=== PATIENT | female | born 1975 | race Caucasian/White ===

== ENCOUNTER 2021-04-03 07:35 | Outpatient (CLI) | payer BC ==
[2021-04-03] VITALS (9 sets, daily range): BP systolic 98–142; BP diastolic 50–78
[~2021-04-03] VITALS: Ht 162.6 cm; Wt 63.6 kg
[2021-04-03] MEDS ORDERED: OCRELIZUMAB 600 MG in NS 500 ML IV ONE (08:00)
[2021-04-03] MEDS ORDERED: methylPREDNISolone 125MG 2ML VIAL IV ONE (08:00)
[2021-04-03] MEDS ORDERED: ACETAMINOPHEN TAB 650MG DOSE (2X325MG) PO ONE (08:00)
[2021-04-03] MEDS ORDERED: diphenhydrAMINE 25MG CAP PO ONE (08:00)
== END 2021-04-03 13:10 | disposition home or self-care (01) ==
LOC: M INFU 07:35
PROVIDERS: ATTEND Psychiatry & Neurology Neurology
DX: G35 Multiple sclerosis (principal); Z88.0 Allergy status to penicillin; Z88.8 Allergy status to other drugs, medicaments and biological substances; Z91.013 Allergy to seafood
CPT/HCPCS: 96365; 96366; 96375; J2350; J2930

== ENCOUNTER 2021-10-02 07:50 | Outpatient (CLI) | payer BC ==
[2021-10-02] VITALS (7 sets, daily range): BP systolic 108–130; BP diastolic 56–77
[~2021-10-02] VITALS: Ht 162.6 cm; Wt 28.9 kg
[2021-10-02] MEDS ORDERED: OCRELIZUMAB 600 MG in NS 500 ML IV ONE (08:00)
[2021-10-02] MEDS ORDERED: diphenhydrAMINE 25MG CAP PO ONE (08:00)
[2021-10-02] MEDS ORDERED: ACETAMINOPHEN TAB 650MG DOSE (2X325MG) PO ONE (08:00)
[2021-10-02] MEDS ORDERED: methylPREDNISolone 125MG 2ML VIAL IV ONE (08:00)
[2021-10-02] MEDS ORDERED: PURE500C5 PO (08:14)
[2021-10-02] MEDS ORDERED: VITAMIN D PO (08:15)
[2021-10-02] MEDS ORDERED: NORV5TAB PO (08:20)
[2021-10-02] MEDS ORDERED: CYCL-707 PO (08:20)
[2021-10-02] MEDS ORDERED: RIZA10TA58 PO (08:20)
[2021-10-02] MEDS ORDERED: HYDR-3363 PO (08:20)
== END 2021-10-02 12:25 | disposition home or self-care (01) ==
LOC: M INFU 07:50 → EDUNIT# 08:00 → M INFU 12:25
PROVIDERS: ATTEND Psychiatry & Neurology Neurology
DX: G35 Multiple sclerosis (principal); Z88.0 Allergy status to penicillin; Z88.8 Allergy status to other drugs, medicaments and biological substances
CPT/HCPCS: 96365; 96366; 96375; J2350; J2930

== ENCOUNTER 2022-04-04 07:41 | Outpatient (CLI) | payer BC ==
[~2022-04-04] VITALS: Ht 162.6 cm; Wt 65.0 kg
[2022-04-04] VITALS (7 sets, daily range): BP systolic 106–132; BP diastolic 56–72
[~2022-04-04 07:41] MED LIST: ASCO500C3 PO; CYCL-707 PO; HYDR-3363 PO; NORV5TAB PO; RIZA10TA58 PO; VITAMIN D PO
[2022-04-04] MEDS ORDERED: ACETAMINOPHEN TAB 650MG DOSE (2X325MG) PO ONE (08:00)
[2022-04-04] MEDS ORDERED: diphenhydrAMINE 25MG CAP PO ONE (08:00)
[2022-04-04] MEDS ORDERED: methylPREDNISolone 125MG 2ML VIAL IV ONE (08:00)
[2022-04-04] MEDS ORDERED: OCRELIZUMAB 600 MG in NS 500 ML IV ONE (08:00)
== END 2022-04-04 12:25 | disposition home or self-care (01) ==
LOC: M INFU 07:41
PROVIDERS: ATTEND Psychiatry & Neurology Neurology
DX: G35 Multiple sclerosis (principal); Z88.0 Allergy status to penicillin; Z88.8 Allergy status to other drugs, medicaments and biological substances; Z91.013 Allergy to seafood
CPT/HCPCS: 96365; 96366; 96367; J2350; J2930

== ENCOUNTER → 2022-10-02 | Outpatient (CLI) | payer BC ==
[~2022-10-02] VITALS: Ht 163.8 cm; Wt 74.5 kg
[~2022-10-02] MED LIST changes: +ACETAMINOPHEN TAB 650MG DOSE (2X325MG) PO ONE; +OCRELIZUMAB 600 MG in NS 500 ML IV ONE; +diphenhydrAMINE 25MG CAP PO ONE; +methylPREDNISolone 125MG 2ML VIAL IV ONE
[2022-10-02 08:16] VITALS: BP 121/58; O2SAT 98
[2022-10-02 09:30] VITALS: BP 114/62; TEMP 98; O2SAT 100
[2022-10-02 10:23] VITALS: BP 111/66; TEMP 97.5; O2SAT 97
[2022-10-02 12:56] VITALS: BP 133/69; O2SAT 97
== END ==
LOC: M INFU 07:56
PROVIDERS: ATTEND Psychiatry & Neurology Neurology
DX: G35 Multiple sclerosis (principal); Z88.0 Allergy status to penicillin; Z88.8 Allergy status to other drugs, medicaments and biological substances
CPT/HCPCS: 96365; 96366; J2350; J2930

== ENCOUNTER 2023-04-04 08:18 | Outpatient (CLI) | payer BC ==
[2023-04-04] VITALS (7 sets, daily range): BP systolic 106–130; BP diastolic 57–76; TEMP 97.6–98.7; O2SAT 98–100
[~2023-04-04] VITALS: Ht 162.6 cm; Wt 68.6 kg
[~2023-04-04 08:18] MED LIST changes: -ACETAMINOPHEN TAB 650MG DOSE (2X325MG) PO ONE; -OCRELIZUMAB 600 MG in NS 500 ML IV ONE; -diphenhydrAMINE 25MG CAP PO ONE; -methylPREDNISolone 125MG 2ML VIAL IV ONE
[2023-04-04] MEDS: methylPREDNISolone 125MG 2ML VIAL IV ONE (09:09)
[2023-04-04] MEDS: ACETAMINOPHEN TAB 650MG DOSE (2X325MG) PO ONE (09:10)
[2023-04-04] MEDS: diphenhydrAMINE 25MG CAP PO ONE (09:10)
[2023-04-04] MEDS: OCRELIZUMAB 600 MG in NS 500 ML IV ONE (09:30)
== END 2023-04-04 13:30 | disposition home or self-care (01) ==
LOC: M INFU 08:18
PROVIDERS: ATTEND Psychiatry & Neurology Neurology
DX: G35 Multiple sclerosis (principal); Z88.0 Allergy status to penicillin; Z88.8 Allergy status to other drugs, medicaments and biological substances
CPT/HCPCS: 96365; 96366; 96375; J2350; J2930

== ENCOUNTER 2023-10-03 09:00 | Outpatient (CLI) | payer BC ==
[~2023-10-03] VITALS: Ht 162.6 cm; Wt 70.5 kg
[2023-10-03 09:20] VITALS: BP 128/63; O2SAT 100
[2023-10-03] MEDS: diphenhydrAMINE 25MG CAP PO ONE (10:00)
[2023-10-03] MEDS: ACETAMINOPHEN TAB 650MG DOSE (2X325MG) PO ONE (10:00)
[2023-10-03] MEDS: methylPREDNISolone 125MG 2ML VIAL IV ONE (10:00)
[2023-10-03] MEDS: OCRELIZUMAB 600 MG in NS 500 ML IV ONE (10:50)
[2023-10-03 11:20] VITALS: BP 122/58; O2SAT 98
[2023-10-03 12:20] VITALS: BP 127/64; O2SAT 98
[2023-10-03 12:50] VITALS: BP 120/61; O2SAT 96
[2023-10-03 13:20] VITALS: BP 129/70; O2SAT 97
[2023-10-03 14:50] VITALS: BP 120/63; O2SAT 96
== END 2023-10-03 14:50 ==
LOC: M INFU 09:00
PROVIDERS: ATTEND Psychiatry & Neurology Neurology
DX: G35 Multiple sclerosis (principal); Z88.0 Allergy status to penicillin; Z88.8 Allergy status to other drugs, medicaments and biological substances; Z91.013 Allergy to seafood
CPT/HCPCS: 96365; 96366; 96367; J2350; J2919

== ENCOUNTER 2024-04-15 07:20 | Outpatient (CLI) | payer BC ==
[~2024-04-15] VITALS: Ht 165.1 cm; Wt 68.2 kg
[2024-04-15 08:11] VITALS: BP 128/68; TEMP 97.5; O2SAT 99
[2024-04-15] MEDS: methylPREDNISolone 125MG 2ML VIAL IV ONE (08:35)
[2024-04-15] MEDS: diphenhydrAMINE 25MG CAP PO ONE (08:35)
[2024-04-15] MEDS: ACETAMINOPHEN 325 MG TAB PO ONE (08:35)
[2024-04-15] MEDS: OCRELIZUMAB 600 MG in NS 500 ML IV ONE (09:08)
[2024-04-15 09:30] VITALS: BP 136/71; O2SAT 98
[2024-04-15 10:00] VITALS: BP 141/75; O2SAT 99
[2024-04-15 10:30] VITALS: BP 139/84; O2SAT 99
[2024-04-15 11:00] VITALS: BP 126/61; O2SAT 98
[2024-04-15 13:10] VITALS: BP 140/72; O2SAT 97
== END 2024-04-15 13:15 ==
LOC: M INFU 07:20
PROVIDERS: ATTEND Psychiatry & Neurology Neurology
DX: G35 Multiple sclerosis (principal); Z88.0 Allergy status to penicillin; Z88.8 Allergy status to other drugs, medicaments and biological substances; Z91.013 Allergy to seafood
CPT/HCPCS: 96365; 96366; 96375; J2350; J2919

== ENCOUNTER 2024-10-28 08:22 | Outpatient (CLI) | payer BC ==
[~2024-10-28] VITALS: Ht 165.1 cm; Wt 70.5 kg
[2024-10-28 08:35] VITALS: BP 130/69; O2SAT 98
[2024-10-28] MEDS: ACETAMINOPHEN 325 MG TAB PO ONE (08:47)
[2024-10-28] MEDS: OCRELIZUMAB 600 MG in NS 500 ML IV ONE (09:29)
[2024-10-28 10:00] VITALS: BP 133/74; O2SAT 99
[2024-10-28 10:30] VITALS: BP 133/57; O2SAT 98
[2024-10-28 11:00] VITALS: BP 107/64; O2SAT 100
[2024-10-28 11:30] VITALS: BP 121/69; O2SAT 100
[2024-10-28 13:27] VITALS: BP 142/71; O2SAT 97
== END 2024-10-28 13:30 | disposition home or self-care (01) ==
LOC: M INFU 08:22
PROVIDERS: ATTEND Psychiatry & Neurology Neurology
DX: G35 Multiple sclerosis (principal); Z88.0 Allergy status to penicillin; Z88.8 Allergy status to other drugs, medicaments and biological substances; Z91.013 Allergy to seafood
CPT/HCPCS: 96365; 96366; 96375; J2350; J2919